=== PATIENT | female | born 1975 | race Caucasian/White ===

== ENCOUNTER 2016-11-01 20:29 | Inpatient (IN) | payer SELFPAY ==
[2016-11-01] MEDS ORDERED: TYLENOL PO ONE (21:31)
[2016-11-01] MEDS ORDERED: TYLENOL ONE (21:32)
[2016-11-01 21:47] LABS: Basophils % (Auto) 1.7 % (0.0-1.8); Eosinophils % (Auto) 0.3 % (0.0-4.3); Hematocrit 37.3 % (30.3-42.9); Hemoglobin 12.2 gm/dl (10.1-14.3); Mean Corpuscular HGB Conc 33 % (30-34); Mean Corpuscular Hemoglobin 28 pg (28-32); Mean Corpuscular Volume 86 fl (79-97); Platelet Count 213 K/mm3 (140-440); Red Blood Count 4.33 M/mm3 (3.65-5.03); Red Cell Distribution Width 12.9 % (13.2-15.2); White Blood Count 10.8 K/mm3 (4.5-11.0)
[2016-11-01 21:56] LABS: Bilirubin,Urine NEG (Negative); Blood,Urine NEG (Negative); Ketones,Urine TR mg/dL (Negative); Leukocyte Esterase,Urine NEG (Negative); Mucus,Urine 3+ /HPF; Nitrite,Urine NEG (Negative); Urobilinogen,Urine < 2.0 mg/dL (<2.0)
[2016-11-01 22:04] LABS: Alanine Aminotransferase 55 units/L (7-56); Albumin 4.1 g/dL (3.9-5); Albumin/Globulin Ratio 1.2 %; Alkaline Phosphatase 89 units/L (35-129); Anion Gap 18 mmol/L; Blood Urea Nitrogen 12 mg/dL (7-17); Calcium 8.9 mg/dL (8.4-10.2); Carbon Dioxide 24 mmol/L (22-30); Chloride 101.9 mmol/L (98-107); Glucose 111 mg/dL (65-100); Lipase 18 units/L (13-60); Potassium 3.9 mmol/L (3.6-5.0); Sodium 140 mmol/L (137-145); Total Protein 7.6 g/dL (6.3-8.2)
[2016-11-02] MEDS ORDERED: ZOFRAN ODT PO ONE (00:22)
[2016-11-02] MEDS ORDERED: SUBLIMAZE IV ONE (05:34)
[2016-11-02] MEDS ORDERED: ZOFRAN IV ONE (05:34)
[2016-11-02] MEDS ORDERED: PEPCID IV ONE (05:34)
[2016-11-02] MEDS ORDERED: NACL 0.9% 1000 ML 1,000 ML IV ONE (07:26)
[2016-11-02] MEDS ORDERED: CARAFATE PO ONE (07:26)
[2016-11-02] MEDS ORDERED: BENTYL IM ONE (07:26)
[2016-11-02] MEDS ORDERED: NACL ONE (07:27)
--- NOTE | 2016-11-02 07:35 | Emergency Department Report ---
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 She is previously unknown to me. She does not have a primary care doctor. Past medical history is noncontributory, denies history of abdominal surgeries with the exception of section. The patient presented to the ER with abdominal pain. The abdominal pain is periumbilical, and radiates all over. It is associated with 4 episodes of emesis, initially described as coffee color, then yellow. She is passing gas. She is defecating. She reports that her defecation is coffee colored as well. There is no hematemesis. There is no bright red blood per rectum. No irritative or obstructive urinary symptoms. No vaginal discharge. Patient briefly describes central chest pain which lasted for a few hours. The chest pain was central, and did not radiate to the back, arms and neck. There is no diaphoresis, there is no shortness of breath. There is no leg pain. There is no leg swelling. No aspirin within the past 7 days, no recent trips, no cocaine use. -: Gradual Location: chest, abdomen Severity scale (0 -10): 8 Quality: aching Consistency: intermittent Improves with: none Worsens with: none Associated Symptoms: chest pain, nausea/vomiting - Related Data Home Medications Medication Instructions Recorded Confirmed Last Taken No Known Home Medications [No 11/02/16 11/02/16 Unknown Reported Home Medications] Allergies Allergy/AdvReac Type Severity Reaction Status Date / Time b-complex Allergy Rash Uncoded 09/29/15 21:01 ED Review of Systems ROS: Stated complaint: CP/VOMITING/ABD PAIN Other details as noted in HPI Constitutional: weakness. denies: malaise Eyes: denies: vision change ENT: denies: epistaxis Respiratory: denies: cough Cardiovascular: chest pain Gastrointestinal: abdominal pain Genitourinary: as per HPI Musculoskeletal: as per HPI Skin: as per HPI Neurological: as per HPI Psychiatric: as per HPI ED Past Medical Hx - Past Medical History Previous Medical History?: No - Surgical History Past Surgical History?: Yes Additional Surgical History: x1 - Social History Smoking Status: Never Smoker - Medications Home Medications: Home Medications Medication Instructions Recorded Confirmed Last Taken Type No Known Home Medications [No 11/02/16 11/02/16 Unknown History Reported Home Medications] ED Physical Exam - General Limitations: Language Barrier General appearance: alert, in no apparent distress - Head Head exam: Present: atraumatic, normocephalic - Eye Eye exam: Present: normal appearance, EOMI. Absent: nystagmus - ENT ENT exam: Present: normal exam, normal orophraynx, mucous membranes moist, normal external ear exam - Neck Neck exam: Present: normal inspection, full ROM. Absent: tenderness, meningismus - Respiratory Respiratory exam: Present: normal lung sounds bilaterally. Absent: respiratory distress, wheezes, rales, rhonchi, stridor, chest wall tenderness, accessory muscle use, decreased breath sounds, prolonged expiratory - Cardiovascular Cardiovascular Exam: Present: regular rate, normal rhythm. Absent: systolic murmur, diastolic murmur, rubs, gallop - GI/Abdominal GI/Abdominal exam: Present: soft, normal bowel sounds. Absent: distended, tenderness, guarding, rebound, rigid, pulsatile mass - Extremities Exam Extremities exam: Present: normal inspection, full ROM, normal capillary refill. Absent: pedal edema, joint swelling, calf tenderness - Back Exam Back exam: Present: normal inspection, full ROM. Absent: tenderness, CVA tenderness (R), CVA tenderness (L), muscle spasm, paraspinal tenderness, vertebral tenderness - Neurological Exam Neurological exam: Present: alert, normal gait, other (Extraocular movements intact. Tongue midline. No facial droop. Facial sensation intact to light touch in the V1, V2, V3 distribution bilaterally. 5 and 5 strength in 4 extremities.. Sensation is intact to light touch in 4 extremities.). Absent: motor sensory deficit - Psychiatric Psychiatric exam: Present: normal affect, normal mood - Skin Skin exam: Present: warm, dry, intact, normal color. Absent: rash ED Course Vital Signs 11/01/16 11/02/16 11/02/16 20:53 00:14 06:57 Temperature 98.3 F 97.9 F 98.3 F Pulse Rate 66 61 80 Respiratory 18 20 16 Rate Blood Pressure 99/64 101/55 Blood Pressure 108/64 [Left] O2 Sat by Pulse 100 100 Oximetry 06/11/02/16 11/02/16 08:54 12:07 12:56 Temperature 98.0 F 98.1 F 98.4 F Pulse Rate 80 65 65 Respiratory 16 16 16 Rate Blood Pressure Blood Pressure 110/67 98/60 101/58 [Left] O2 Sat by Pulse 100 100 100 Oximetry - Reevaluation(s) Reevaluation #1: 11/02/16 07:52 Differential diagnosis: GERD, gastritis, pancreatitis, upper GI bleed, pneumonia , ovarian cyst, inflammatory disease, gastroenteritis, pancreatitis, acute coronary syndrome, esophagitis Assessment and plan: 41-year-old female with a primary complaint of abdominal pain. She is afebrile, with reassuring vital signs. Her abdominal exam is benign. There is no rebound, guarding or peritoneal signs. Chest pain atypical , low risk by LOIS score, low risk by heart score, low risk by wells criteria, perc negative. Laboratory studies reviewed and are unremarkable. Troponins negative 3. EKG morphologically within normal limits 2. X-ray of the chest is negative. Patient's main complaint is abdominal pain. Of note, patient was given multiple medications prior to my evaluation. Therefore, I do not know if she was initially tender when she presented. We will obtain a CT scan of abdomen and pelvis, performed gynecologic exam, and rectal examination, and then reassess. Reevaluation #2: 11/02/16 08:33 Gynecologic examination: Escorted by nurse by Suri Snider: No cervical motion tenderness, no adnexal tenderness, no discharge, no bleeding. Rectal examination, also escorted by Suri Snider: Guaiac-negative, good tone, no gross blood Reevaluation #3: 11/02/16 10:31 CT scan suggests ileus versus partial small bowel obstruction. The patient feels improved. The case is discussed with the general surgeon, , who indicates he is able to follow as a consult. The case is presented to [facility]AB[facility] Byers, who accepts the patient to the internal medicine service. ED Medical Decision Making - Lab Data Result diagrams: 11/01/16 21:26 11/01/16 21:26 Vital Signs 11/01/16 11/02/16 20:53 00:14 Temperature 98.3 F 97.9 F Pulse Rate 66 61 Respiratory 18 20 Rate Blood Pressure 99/64 101/55 O2 Sat by Pulse 100 Oximetry Lab Results 11/01/16 11/01/16 11/01/16 Range/Units 21:24 21:26 21:26 WBC 10.8 (4.5-11.0) K/mm3 RBC 4.33 (3.65-5.03) M/mm3 Hgb 12.2 (10.1-14.3) gm/dl Hct 37.3 (30.3-42.9) % MCV 86 (79-97) fl MCH 28 (28-32) pg MCHC 33 (30-34) % RDW 12.9 L (13.2-15.2) % Plt Count 213 (140-440) K/mm3 Lymph % (Auto) 14.4 (13.4-35.0) % [place] % (Auto) 4.1 (0.0-7.3) % Eos % (Auto) 0.3 (0.0-4.3) % Baso % (Auto) 1.7 (0.0-1.8) % Lymph # 1.5 (1.2-5.4) K/mm3 [place] # 0.4 (0.0-0.8) K/mm3 Eos # 0.0 (0.0-0.4) K/mm3 Baso # 0.2 H (0.0-0.1) K/mm3 Seg Neutrophils % 79.5 H (40.0-70.0) % Seg Neutrophils # 8.6 H (1.8-7.7) K/mm3 Sodium 140 (137-145) mmol/L Potassium 3.9 (3.6-5.0) mmol/L Chloride 101.9 (98-107) mmol/L Carbon Dioxide 24 (22-30) mmol/L Anion Gap 18 mmol/L BUN 12 (7-17) mg/dL Creatinine 0.5 L (0.7-1.2) mg/dL Estimated GFR > 60 ml/min BUN/Creatinine Ratio 24.00 % Glucose 111 H (65-100) mg/dL Calcium 8.9 (8.4-10.2) mg/dL Total Bilirubin 0.30 (0.1-1.2) mg/dL AST 40 (5-40) units/L ALT 55 (7-56) units/L Alkaline Phosphatase 89 (35-129) units/L Troponin T < 0.010 (0.00-0.029) ng/mL Total Protein 7.6 (6.3-8.2) g/dL Albumin 4.1 (3.9-5) g/dL Albumin/Globulin Ratio 1.2 % Lipase 18 (13-60) units/L Urine Color Yellow (Yellow) Urine Turbidity Clear (Clear) Urine pH 5.0 (5.0-7.0) Ur Specific [place] 1.034 H (1.003-1.030) Urine Protein 30 mg/dl (Negative) mg/dL Urine Glucose (UA) Neg (Negative) mg/dL Urine Ketones Tr (Negative) mg/dL Urine Blood Neg (Negative) Urine Nitrite Neg (Negative) Ur Reducing Substances Not Reportable Urine Bilirubin Neg (Negative) Urine Ictotest Not Reportable Urine Urobilinogen < 2.0 (<2.0) mg/dL Ur Leukocyte Esterase Neg (Negative) Urine WBC (Auto) 2.0 (0.0-6.0) /HPF Urine RBC (Auto) 10.0 (0.0-6.0) /HPF U Epithel Cells (Auto) 14.0 H (0-13.0) /HPF Urine Mucus 3+ /HPF Urine HCG, Qual Negative (Negative) 11/02/16 11/02/16 Range/Units 00:33 03:42 WBC (4.5-11.0) K/mm3 RBC (3.65-5.03) M/mm3 Hgb (10.1-14.3) gm/dl Hct (30.3-42.9) % MCV (79-97) fl MCH (28-32) pg MCHC (30-34) % RDW (13.2-15.2) % Plt Count (140-440) K/mm3 Lymph % (Auto) (13.4-35.0) % [place] % (Auto) (0.0-7.3) % Eos % (Auto) (0.0-4.3) % Baso % (Auto) (0.0-1.8) % Lymph # (1.2-5.4) K/mm3 [place] # (0.0-0.8) K/mm3 Eos # (0.0-0.4) K/mm3 Baso # (0.0-0.1) K/mm3 Seg Neutrophils % (40.0-70.0) % Seg Neutrophils # (1.8-7.7) K/mm3 Sodium (137-145) mmol/L Potassium (3.6-5.0) mmol/L Chloride (98-107) mmol/L Carbon Dioxide (22-30) mmol/L Anion Gap mmol/L BUN (7-17) mg/dL Creatinine (0.7-1.2) mg/dL Estimated GFR ml/min BUN/Creatinine Ratio % Glucose (65-100) mg/dL Calcium (8.4-10.2) mg/dL Total Bilirubin (0.1-1.2) mg/dL AST (5-40) units/L ALT (7-56) units/L Alkaline Phosphatase (35-129) units/L Troponin T < 0.010 < 0.010 (0.00-0.029) ng/mL Total Protein (6.3-8.2) g/dL Albumin (3.9-5) g/dL Albumin/Globulin Ratio % Lipase (13-60) units/L Urine Color (Yellow) Urine Turbidity (Clear) Urine pH (5.0-7.0) Ur Specific [place] (1.003-1.030) Urine Protein (Negative) mg/dL Urine Glucose (UA) (Negative) mg/dL Urine Ketones (Negative) mg/dL Urine Blood (Negative) Urine Nitrite (Negative) Ur Reducing Substances Urine Bilirubin (Negative) Urine Ictotest Urine Urobilinogen (<2.0) mg/dL Ur Leukocyte Esterase (Negative) Urine WBC (Auto) (0.0-6.0) /HPF Urine RBC (Auto) (0.0-6.0) /HPF U Epithel Cells (Auto) (0-13.0) /HPF Urine Mucus /HPF Urine HCG, Qual (Negative) - EKG Data -: EKG Interpreted by Me EKG shows normal: sinus rhythm, axis, intervals, QRS complexes, ST-T waves - EKG Data 11/02/16 07:54 EKG #1 demonstrates sinus, 69 beats per minute, normal intervals, normal axis, not morphologically consistent with STEMI. EKG #2 demonstrates sinus bradycardia, 53 bpm, normal intervals, normal axis, not consistent with STEMI. - Radiology Data Radiology results: pending, image reviewed interpreted by me: X-ray the chest is negative for acute disease Critical care attestation.: If time is entered above; I have spent that time in minutes in the direct care of this critically ill patient, excluding procedure time. ED Disposition Clinical Impression: Abdominal pain Disposition: OP ADMIT IP TO THIS HOSP Is pt being admited?: Yes Condition: Good
--- NOTE | 2016-11-02 08:34 | Cat Scan Report ---
FINAL REPORT EXAM: CT ABDOMEN PELVIS W CON HISTORY: abd pain n/v TECHNIQUE: CT abdomen and pelvis performed. Images extend from diaphragm to pubic symphysis. PRIORS: 09/30/2015 FINDINGS: The visualized aspects of the lung bases are clear. There are dilated mid to distal small bowel loops. There is caliber transition but there is fluid in distal loops. Findings could represent a small bowel obstruction versus an ileus. There is no abdominal aortic aneurysm. The visualized liver, spleen, pancreas, adrenal glands and kidneys demonstrate no significant abnormalities. There is no free intraperitoneal air. There are no abnormal fluid collections seen. The bladder is unremarkable. 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 IMPRESSION: Findings are worrisome for small-bowel obstruction versus ileus.
--- NOTE | 2016-11-02 09:33 | XRay Report ---
AP CHEST: HISTORY: chest pain AP view of the chest demonstrates a normal mediastinal and cardiac contour with clear lungs and normal bony and soft tissue structures. IMPRESSION: Unremarkable AP chest.
[2016-11-02] MEDS ORDERED: MILK OF MAGNESIA PO PRN (11:08)
[2016-11-02] MEDS ORDERED: DULCOLAX PR PRN (11:08)
[2016-11-02] MEDS ORDERED: TYLENOL PO PRN (11:08)
[2016-11-02] MEDS ORDERED: ZOFRAN IV PRN (11:08)
[2016-11-02] MEDS ORDERED: HCTZ PO ONE (12:10)
--- NOTE | 2016-11-02 13:17 | History and Physical Report ---
History of Present Illness Date of examination: 11/02/16 Date of admission: 11/02/16 11:59 Chief complaint: Abdominal pain, Nausea and vomiting History of present illness: Patient is a 41 years old female with no past medical history who presents with abdominal pain. The patient states that since yesterday she has felt bloated and has had a decrease in appetite. Two days ago she began having intermittent abdominal pain that initially felt like gas pains but it has now progressed to being nearly constant. Since yesterday she has had severe nausea and has had 4 episodes of coffee colored emesis . Her last bowel movement was yesterday and her defecation is coffee colored as well. She has a history of intermittent constipation but never with this level of pain, the vomiting, or the bloating. . Initially, when she would eat the pain would increase but she has not eaten anything for over 24 hours. Vomiting is the only thing that seems to provide some minimal relief. Currently, the pain is described as a constant dull, diffuse pain that intermittently becomes sharp and well localized. The sharp pain tends to occur in periumbilical area. The intensity of the pain has been increasing over the since yesterday and on pain scale she now rates the pain at 7 out of 10. She denies a recent history of fever, jaundice, pruritis, diarrhea , hemoptysis, melena, or hematochezia. She denies a known history of hemorrhoids , diverticulitis, colon cancer, peptic ulcer disease, gastritis, acid reflux, gall bladder disease or cholelithiasis. She denies a history of smoking or alcohol consumption. Past History Past Medical History: No medical history Past Surgical History: No surgical history, (2 times ) Social history: no significant social history, lives with family Medications and Allergies Allergies Allergy/AdvReac Type Severity Reaction Status Date / Time b-complex Allergy Rash Uncoded 09/29/15 21:01 Home Medications Medication Instructions Recorded Confirmed Last Taken Type No Known Home Medications [No 11/02/16 11/02/16 Unknown History Reported Home Medications] Active Meds: Active Medications Acetaminophen (Tylenol) 650 mg PO Q4H PRN PRN Reason: Pain MILD(1-3)/Fever >100.5/PEÑA Bisacodyl (Dulcolax) 10 mg DC QDAY PRN PRN Reason: Constipation unrelieved by MOM Enoxaparin Sodium (Lovenox) 40 mg SUB-Q QDAY [facility] Famotidine (Pepcid) 10 mg IV BID [facility] Dextrose/Sodium Chloride (D5ns) 1,000 mls @ 75 mls/hr IV DIRECT HUONG Magnesium Hydroxide (Milk Of Magnesia) 30 ml PO Q4H PRN PRN Reason: Constipation Morphine Sulfate (Morphine) 2 mg IV Q4H PRN PRN Reason: Pain, Moderate (4-6) Ondansetron HCl (Zofran) 4 mg IV Q8H PRN PRN Reason: N/V unrelieved by [facility] Review of Systems Constitutional: no weight loss, no weight gain, no fever, no chills, no sweats, no night sweats Ears, nose, mouth and throat: no deferred, no ear pain, no ear discharge, no tinnitis, no nose pain Breasts: normal Cardiovascular: no chest pain, no orthopnea, no palpitations, no shortness of breath Respiratory: no cough, no cough with sputum Gastrointestinal: abdominal pain, nausea, vomiting Genitourinary Female: no dyspareunia, no dysmenorrhea, no pelvic pain Menstruation: no currently menstrual, no premenarcheal, no post hysterectomy Rectal: no pain, no incontinence Musculoskeletal: no neck stiffness, no neck pain Integumentary: no rash, no pruritis Neurological: no head injury, no transient paralysis, no numbness Psychiatric: no anxiety, no memory loss, no change in sleep habits Endocrine: no cold intolerance, no heat intolerance, no polyphagia, no excessive thirst Hematologic/Lymphatic: no easy bruising, no easy bleeding Allergic/Immunologic: no urticaria, no allergic rhinitis Exam - Constitutional Vitals: Temp Pulse Resp BP Pulse Ox 98.4 F 65 16 101/58 100 11/02/16 12:56 11/02/16 12:56 11/02/16 12:56 11/02/16 12:56 11/02/16 12:56 General appearance: Present: mild distress - EENT Eyes: Present: PERRL, EOM intact ENT: hearing intact, clear oral mucosa - Neck Neck: Present: supple, normal ROM - Respiratory Respiratory effort: normal Respiratory: bilateral: CTA - Cardiovascular Heart rate: 65 Heart Sounds: Present: S1 & S2. Absent: rub, click - Extremities Extremities: pulses symmetrical, No edema Peripheral Pulses: within normal limits - Abdominal General gastrointestinal: Present: soft, tender Localized gastrointestinal: tender: LLQ, epigastric periumbilical, midline, guarding: LLQ, epigastric periumbilical, midline - Rectal Rectal Exam: deferred - Integumentary Integumentary: Present: clear, warm, dry - Musculoskeletal Musculoskeletal: strength equal bilaterally - Psychiatric Psychiatric: appropriate mood/affect, intact judgment & insight - Neurologic Neurologic: CNII-XII intact, moves all extremities - Allied Health Allied health notes reviewed: nursing Results - Labs CBC & Chem 7: 11/03/16 04:15 11/03/16 04:15 Labs: Laboratory Last Values WBC 10.8 K/mm3 (4.5-11.0) 11/01/16 21: RBC 4.33 M/mm3 (3.65-5.03) 11/01/16 21: Hgb 12.2 gm/dl (10.1-14.3) 11/01/16: Hct 37.3 % (30.3-42.9) 11/01/16 21: MCV 86 fl (79-97) 11/01/16 21: MCH 28 pg (28-32) 11/01/16 21: MCHC 33 % (30-34) 11/01/16: RDW 12.9 % (13.2-15.2) L 11/01/16 21: Plt Count 213 K/mm3 (140-440) 11/01/16 21: Lymph % (Auto) 14.4 % (13.4-35.0) 11/01/16 21: [place] % (Auto) 4.1 % (0.0-7.3) 11/01/16 21: Eos % (Auto) 0.3 % (0.0-4.3) 11/01/16: Baso % (Auto) 1.7 % (0.0-1.8) 11/01/16: Lymph # 1.5 K/mm3 (1.2-5.4) 11/01/16 21: [place] # 0.4 K/mm3 (0.0-0.8) 11/01/16 21: Eos # 0.0 K/mm3 (0.0-0.4) 11/01/16 21:26 Baso # 0.2 K/mm3 (0.0-0.1) H 11/01/16 21:26 Seg Neutrophils % 79.5 % (40.0-70.0) H 11/01/16 21:26 Seg Neutrophils # 8.6 K/mm3 (1.8-7.7) H 11/01/16 21:26 Sodium 140 mmol/L (137-145) 11/01/16 21:26 Potassium 3.9 mmol/L (3.6-5.0) 11/01/16 21: Chloride 101.9 mmol/L (98-107) 11/01/16 21:26 Carbon Dioxide 24 mmol/L (22-30) 11/01/16 21:26 Anion Gap 18 mmol/L 11/01/16 21:26 BUN 12 mg/dL (7-17) 11/01/16 21: Creatinine 0.5 mg/dL (0.7-1.2) L 11/01/16 21:26 Estimated GFR > 60 ml/min 11/01/16 21:26 BUN/Creatinine Ratio 24.00 % 11/01/16 21:26 Glucose 111 mg/dL (65-100) H 11/01/16 21: Calcium 8.9 mg/dL (8.4-10.2) 11/01/16 21: Total Bilirubin 0.30 mg/dL (0.1-1.2) 11/01/16 21:26 AST 40 units/L (5-40) 11/01/16 21: ALT 55 units/L (7-56) 11/01/16 21:26 Alkaline Phosphatase 89 units/L (35-129) 11/01/16 21:26 Troponin T < 0.010 ng/mL (0.00-0.029) 11/02/16 03:42 Total Protein 7.6 g/dL (6.3-8.2) 11/01/16 21: Albumin 4.1 g/dL (3.9-5) 11/01/16 21:26 Albumin/Globulin Ratio 1.2 % 11/01/16 21:26 Lipase 18 units/L (13-60) 11/01/16 21:26 Urine Color Yellow (Yellow) 11/01/16 21:24 Urine Turbidity Clear (Clear) 11/01/16 21:24 Urine pH 5.0 (5.0-7.0) 11/01/16 21:24 Ur Specific [place] 1.034 (1.003-1.030) H 11/01/16 21:24 Urine Protein 30 mg/dl mg/dL (Negative) 11/01/16 21:24 Urine Glucose (UA) Neg mg/dL (Negative) 11/01/16 21:24 Urine Ketones Tr mg/dL (Negative) 11/01/16 21:24 Urine Blood Neg (Negative) 11/01/16 21:24 Urine Nitrite Neg (Negative) 11/01/16 21:24 Ur Reducing Substances Not Reportable 11/01/16 21:24 Urine Bilirubin Neg (Negative) 11/01/16 21:24 Urine Ictotest Not Reportable 11/01/16 21:24 Urine Urobilinogen < 2.0 mg/dL (<2.0) 11/01/16 21:24 Ur Leukocyte Esterase Neg (Negative) 11/01/16 21:24 Urine WBC (Auto) 2.0 /HPF (0.0-6.0) 11/01/16 21:24 Urine RBC (Auto) 10.0 /HPF (0.0-6.0) 11/01/16 21:24 U Epithel Cells (Auto) 14.0 /HPF (0-13.0) H 11/01/16 21:24 Urine Mucus 3+ /HPF 11/01/16 21:24 Urine HCG, Qual Negative (Negative) 11/01/16 21:24 - Imaging and Cardiology Chest x-ray: image reviewed (unremarkable AP chest ) CT scan - abdomen: image reviewed (Findings are worrisome for small-bowel obstruction vs ileus) Assessment and Plan Assessment and plan: ASSESSMENT/PLAN 1. Abdominal pain due to Small-bowel Obstruction versus ileus. We will admit to surgical 2B floor CT abdomen shows small bowel obstruction versus ileus IV fluid hydration Pain control with morphine Surgical consulted 2. Nausea/Vomiting Zofran when necessary NG tube when necessary 3. VTE/GI prophylaxis Lovenox/Protonix
[2016-11-02] MEDS: D5NS 1,000 ML IV SCH (15:20)
[2016-11-02] MEDS: MORPHINE IV PRN ×2 (15:20→22:02)
[2016-11-02] MEDS ORDERED: PEPCID IV SCH (22:00)
[2016-11-02] MEDS: PEPCID IV SCH (22:01)
--- NOTE | 2016-11-02 22:58 | Consultation ---
HISTORY OF PRESENT ILLNESS: This patient is a -[place]. She is a 41-year-old female who came because of recurrent episodes of abdominal pain with some nausea and vomiting. The patient had these episodes every now and then. She denied any problem with like this before; however, she mentioned that she would have intermittent constipation every now and then. Along with that, she complains of bloating of the abdomen with some relief. The pain has been increasing over the last day or 2. She denied any problem with her bowel movements otherwise other than the above. ALLERGIES: She is allergic to B complex. SOCIAL HISTORY: She has 4 children. LABORATORY DATA: Her CBC showed a white count of 10.8, hemoglobin was 12.2, potassium was 3.9. PHYSICAL EXAMINATION: GENERAL: At this point showed a well preserved short-statured -[place] female. She is in no distress. HEAD AND NECK: Negative. Neck is supple. CHEST: Essentially clear. BREASTS: Symmetric. HEART: Sound normal. ABDOMEN: Protuberant, moderate tenderness in the mid epigastrium. Moderate bowel sounds. EXTREMITIES: Showed no significant edema. IMPRESSION: Abdominal pain with nausea and vomiting. The etiology of which is unknown, probably small-bowel obstruction as seen on the CAT scan. We need to pursue that further and we will go from there. JOB# [id number] LEELEE/REBECCA
[2016-11-03] MEDS: D5NS 1,000 ML IV SCH ×2 (04:23→17:08)
[2016-11-03 04:54] LABS: Basophils % (Auto) 0.2 % (0.0-1.8); Eosinophils % (Auto) 1.9 % (0.0-4.3); Hematocrit 34.2 % (30.3-42.9); Hemoglobin 11.1 gm/dl (10.1-14.3); Mean Corpuscular HGB Conc 33 % (30-34); Mean Corpuscular Hemoglobin 28 pg (28-32); Mean Corpuscular Volume 87 fl (79-97); Platelet Count 181 K/mm3 (140-440); Red Blood Count 3.93 M/mm3 (3.65-5.03); Red Cell Distribution Width 13.2 % (13.2-15.2)
[2016-11-03 05:12] LABS: Anion Gap 15 mmol/L; Blood Urea Nitrogen 7 mg/dL (7-17); Calcium 7.9 mg/dL (8.4-10.2); Carbon Dioxide 22 mmol/L (22-30); Chloride 105.5 mmol/L (98-107); Glucose 91 mg/dL (65-100); Potassium 3.8 mmol/L (3.6-5.0); Sodium 139 mmol/L (137-145)
--- NOTE | 2016-11-03 09:46 | XRay Report ---
KUB: 11/03/16 07:07:00 CLINICAL: Abdominal pain. FINDINGS: Normal bowel gas pattern with a large volume of stool throughout the colon and in the rectum. No distended bowel and no air-fluid levels. No mass or suspicious calcifications. The bones and soft tissues are normal. IMPRESSION: Negative abdomen with abundant stool.
[2016-11-03] MEDS ORDERED: PROTONIX IV SCH (10:00)
[2016-11-03] MEDS: LOVENOX SUB-Q SCH (10:27)
[2016-11-03] MEDS: PEPCID IV SCH ×2 (10:27→23:41)
--- NOTE | 2016-11-03 12:14 | Progress Note ---
Assessment and Plan - Patient Problems (1) Abdominal pain Current Visit: Yes Status: Acute Qualifiers: Abdominal location: generalized Qualified Code(s): R10.84 - Generalized abdominal pain Plan to address problem: Abdominal pain secondary to ileus versus small bowel obstruction. Seems to have improved this morning. Less pain hypoactive bowel sounds. We'll see how patient responds to clear liquid diet. Elevated lipase is tolerated. History Interval history: Abdominal pain has improved. Patient has been nothing by mouth. Feels hungry today. Hospitalist Physical - Constitutional Vitals: Temp Pulse Resp BP Pulse Ox 97.6 F 62 18 92/59 100 11/03/16 07:26 11/03/16 07:26 11/03/16 07:26 11/03/16 07:26 11/03/16 07:26 General appearance: Present: no acute distress - EENT Eyes: Present: PERRL, EOM intact ENT: hearing intact, clear oral mucosa, dentition normal - Neck Neck: Present: supple, normal ROM - Respiratory Respiratory effort: normal Respiratory: bilateral: CTA - Cardiovascular Rhythm: regular Heart Sounds: Present: S1 & S2 - Extremities Extremities: no ischemia, pulses intact, pulses symmetrical Extremity abnormal: edema Peripheral Pulses: within normal limits - Abdominal General gastrointestinal: soft, non-tender, non-distended - Integumentary Integumentary: Present: clear, warm, dry - Psychiatric Psychiatric: appropriate mood/affect, cooperative Results - Labs CBC & Chem 7: 11/03/16 04:15 11/03/16 04:15 Labs: Laboratory Last Values WBC 5.0 K/mm3 (4.5-11.0) 11/03/16 04:15 RBC 3.93 M/mm3 (3.65-5.03) 11/03/16 04:15 Hgb 11.1 gm/dl (10.1-14.3) 11/03/16 04:15 Hct 34.2 % (30.3-42.9) 11/03/16 04:15 MCV 87 fl (79-97) 11/03/16 04:15 MCH 28 pg (28-32) 11/03/16 04:15 MCHC 33 % (30-34) 11/03/16 04:15 RDW 13.2 % (13.2-15.2) 11/03/16 04:15 Plt Count 181 K/mm3 (140-440) 11/03/16 04:15 Lymph % (Auto) 43.3 % (13.4-35.0) H 11/03/16 04:15 [place] % (Auto) 7.9 % (0.0-7.3) H 11/03/16 04:15 Eos % (Auto) 1.9 % (0.0-4.3) 11/03/16 04:15 Baso % (Auto) 0.2 % (0.0-1.8) 11/03/16 04:15 Lymph # 2.2 K/mm3 (1.2-5.4) 11/03/16 04:15 [place] # 0.4 K/mm3 (0.0-0.8) 11/03/16 04:15 Eos # 0.1 K/mm3 (0.0-0.4) 11/03/16 04:15 Baso # 0.0 K/mm3 (0.0-0.1) 11/03/16 04:15 Seg Neutrophils % 46.7 % (40.0-70.0) 11/03/16 04:15 Seg Neutrophils # 2.3 K/mm3 (1.8-7.7) 11/03/16 04:15 Sodium 139 mmol/L (137-145) 11/03/16 04:15 Potassium 3.8 mmol/L (3.6-5.0) 11/03/16 04:15 Chloride 105.5 mmol/L (98-107) 11/03/16 04:15 Carbon Dioxide 22 mmol/L (22-30) 11/03/16 04:15 Anion Gap 15 mmol/L 11/03/16 04:15 BUN 7 mg/dL (7-17) 11/03/16 04:15 Creatinine 0.5 mg/dL (0.7-1.2) L 11/03/16 04:15 Estimated GFR > 60 ml/min 11/03/16 04:15 BUN/Creatinine Ratio 14.00 % 11/03/16 04:15 Glucose 91 mg/dL (65-100) 11/03/16 04:15 Calcium 7.9 mg/dL (8.4-10.2) L 11/03/16 04:15 Total Bilirubin 0.30 mg/dL (0.1-1.2) 11/01/16 21:26 AST 40 units/L (5-40) 11/01/16 21: ALT 55 units/L (7-56) 11/01/16 21: Alkaline Phosphatase 89 units/L (35-129) 11/01/16 21: Troponin T < 0.010 ng/mL (0.00-0.029) 11/02/16 03:42 Total Protein 7.6 g/dL (6.3-8.2) 11/01/16 21: Albumin 4.1 g/dL (3.9-5) 11/01/16 21: Albumin/Globulin Ratio 1.2 % 11/01/16 21: Lipase 18 units/L (13-60) 11/01/16 21:26 Urine Color Yellow (Yellow) 11/01/16 21:24 Urine Turbidity Clear (Clear) 11/01/16 21:24 Urine pH 5.0 (5.0-7.0) 11/01/16 21:24 Ur Specific [place] 1.034 (1.003-1.030) H 11/01/16 21:24 Urine Protein 30 mg/dl mg/dL (Negative) 11/01/16 21:24 Urine Glucose (UA) Neg mg/dL (Negative) 11/01/16 21:24 Urine Ketones Tr mg/dL (Negative) 11/01/16 21:24 Urine Blood Neg (Negative) 11/01/16 21:24 Urine Nitrite Neg (Negative) 11/01/16 21:24 Ur Reducing Substances Not Reportable 11/01/16 21:24 Urine Bilirubin Neg (Negative) 11/01/16 21:24 Urine Ictotest Not Reportable 11/01/16 21:24 Urine Urobilinogen < 2.0 mg/dL (<2.0) 11/01/16 21:24 Ur Leukocyte Esterase Neg (Negative) 11/01/16 21:24 Urine WBC (Auto) 2.0 /HPF (0.0-6.0) 11/01/16 21:24 Urine RBC (Auto) 10.0 /HPF (0.0-6.0) 11/01/16 21:24 U Epithel Cells (Auto) 14.0 /HPF (0-13.0) H 06/23/17 21:24 Urine Mucus 3+ /HPF 11/01/16 21:24 Urine HCG, Qual Negative (Negative) 11/01/16 21:24
[2016-11-04] MEDS: D5NS 1,000 ML IV SCH ×2 (06:35→22:30)
[2016-11-04] MEDS ORDERED: MILK OF MAGNESIA PO ONE (07:58)
--- NOTE | 2016-11-04 08:00 | Progress Note ---
Assessment and Plan Assessment and plan: -- Abdominal pain due to Small-bowel Obstruction versus ileus. CT abdomen shows small bowel obstruction versus ileus , symptoms significantly improved Denies nausea vomiting, x-ray consistent with constipation Stool softeners, clear liquid diet as tolerated supportive care --Constipation stool softeners, plenty of oral liquids, enema as needed -- Nausea/Vomiting Significantly improved Zofran when necessary Clear liquid diet advance as tolerated -- VTE/GI prophylaxis Lovenox/Protonix Closely monitor the patient and adjust the management as needed If patient tolerates clear liquids, and advance the diet If patient does not have bowel movement, Fleet enema as as needed Possible discharge in 1-2 days if stable Plan of care discussed with the patient and the at the bedside as well as the nurse History Interval history: Patient seen and evaluated in her room this morning medical records reviewed No new events reported by the nursing staff Patient has been nothing by mouth for abdominal pain and possible ileus Denies nausea vomiting Alert awake oriented 3 not in acute distress, vital signs reviewed Hospitalist Physical - Constitutional Vitals: Temp Pulse Resp BP Pulse Ox 98.2 F 54 L 12 90/60 100 11/04/16 01:52 11/04/16 01:52 11/04/16 01:52 11/04/16 01:52 11/04/16 01:52 General appearance: Present: no acute distress, well-nourished, cachectic - EENT Eyes: Present: PERRL, EOM intact - Neck Neck: Present: supple, normal ROM - Respiratory Respiratory effort: normal Respiratory: bilateral: diminished, negative: rales, rhonchi, wheezing - Cardiovascular Rhythm: regular Heart Sounds: Present: S1 & S2 - Extremities Extremities: no ischemia, pulses intact, pulses symmetrical Peripheral Pulses: within normal limits - Abdominal General gastrointestinal: soft, non-tender, non-distended, normal bowel sounds - Integumentary Integumentary: Present: clear, warm - Psychiatric Psychiatric: appropriate mood/affect, cooperative - Neurologic Neurologic: CNII-XII intact, moves all extremities Results - Labs CBC & Chem 7: 11/03/16 04:15 11/03/16 04:15 Labs: Laboratory Last Values WBC 5.0 K/mm3 (4.5-11.0) 11/03/16 04:15 RBC 3.93 M/mm3 (3.65-5.03) 11/03/16 04:15 Hgb 11.1 gm/dl (10.1-14.3) 11/03/16 04:15 Hct 34.2 % (30.3-42.9) 11/03/16 04:15 MCV 87 fl (79-97) 11/03/16 04:15 MCH 28 pg (28-32) 11/03/16 04:15 MCHC 33 % (30-34) 11/03/16 04:15 RDW 13.2 % (13.2-15.2) 11/03/16 04:15 Plt Count 181 K/mm3 (140-440) 11/03/16 04:15 Lymph % (Auto) 43.3 % (13.4-35.0) H 11/03/16 04:15 Power % (Auto) 7.9 % (0.0-7.3) H 11/03/16 04:15 Eos % (Auto) 1.9 % (0.0-4.3) 11/03/16 04:15 Baso % (Auto) 0.2 % (0.0-1.8) 11/03/16 04:15 Lymph # 2.2 K/mm3 (1.2-5.4) 11/03/16 04:15 Power # 0.4 K/mm3 (0.0-0.8) 11/03/16 04:15 Eos # 0.1 K/mm3 (0.0-0.4) 11/03/16 04:15 Baso # 0.0 K/mm3 (0.0-0.1) 11/03/16 04:15 Seg Neutrophils % 46.7 % (40.0-70.0) 11/03/16 04:15 Seg Neutrophils # 2.3 K/mm3 (1.8-7.7) 11/03/16 04:15 Sodium 139 mmol/L (137-145) 11/03/16 04:15 Potassium 3.8 mmol/L (3.6-5.0) 11/03/16 04:15 Chloride 105.5 mmol/L (98-107) 11/03/16 04:15 Carbon Dioxide 22 mmol/L (22-30) 11/03/16 04:15 Anion Gap 15 mmol/L 11/03/16 04:15 BUN 7 mg/dL (7-17) 11/03/16 04:15 Creatinine 0.5 mg/dL (0.7-1.2) L 11/03/16 04:15 Estimated GFR > 60 ml/min 11/03/16 04:15 BUN/Creatinine Ratio 14.00 % 11/03/16 04:15 Glucose 91 mg/dL (65-100) 11/03/16 04:15 Calcium 7.9 mg/dL (8.4-10.2) L 11/03/16 04:15 Total Bilirubin 0.30 mg/dL (0.1-1.2) 11/01/16 21:26 AST 40 units/L (5-40) 11/01/16 21:26 ALT 55 units/L (7-56) 11/01/16 21:26 Alkaline Phosphatase 89 units/L (35-129) 11/01/16 21:26 Troponin T < 0.010 ng/mL (0.00-0.029) 11/02/16 03:42 Total Protein 7.6 g/dL (6.3-8.2) 11/01/16 21:26 Albumin 4.1 g/dL (3.9-5) 11/01/16 21:26 Albumin/Globulin Ratio 1.2 % 11/01/16 21:26 Lipase 18 units/L (13-60) 11/01/16 21:26 Urine Color Yellow (Yellow) 11/01/16 21:24 Urine Turbidity Clear (Clear) 11/01/16 21:24 Urine pH 5.0 (5.0-7.0) 11/01/16 21:24 Ur Specific [place] 1.034 (1.003-1.030) H 11/01/16 21:24 Urine Protein 30 mg/dl mg/dL (Negative) 11/01/16 21:24 Urine Glucose (UA) Neg mg/dL (Negative) 11/01/16 21:24 Urine Ketones Tr mg/dL (Negative) 11/01/16 21:24 Urine Blood Neg (Negative) 11/01/16 21:24 Urine Nitrite Neg (Negative) 11/01/16 21:24 Ur Reducing Substances Not Reportable 11/01/16 21:24 Urine Bilirubin Neg (Negative) 11/01/16 21:24 Urine Ictotest Not Reportable 11/01/16 21:24 Urine Urobilinogen < 2.0 mg/dL (<2.0) 11/01/16 21:24 Ur Leukocyte Esterase Neg (Negative) 11/01/16 21:24 Urine WBC (Auto) 2.0 /HPF (0.0-6.0) 11/01/16 21:24 Urine RBC (Auto) 10.0 /HPF (0.0-6.0) 11/01/16 21:24 U Epithel Cells (Auto) 14.0 /HPF (0-13.0) H 11/01/16 21:24 Urine Mucus 3+ /HPF 11/01/16 21:24 Urine HCG, Qual Negative (Negative) 11/01/16 21:24
[2016-11-04] MEDS: FLAGYL PO SCH ×3 (09:15→22:22)
[2016-11-04] MEDS: PEPCID IV SCH ×2 (09:15→22:22)
[2016-11-04] MEDS: LOVENOX SUB-Q SCH (09:16)
--- NOTE | 2016-11-04 09:24 | Admit Criteria Form ---
Admission Criteria Documentation: INTESTINAL OBSTRUCTION Clinical Indications for Admission to Inpatient Care (Place 'X' for any and all applicable criteria): Admission is indicated for ANY ONE of the following (1)(2)(3)(4)(5): [X]I. Partial bowel obstruction [ ]II. Complete bowel obstruction Extended stay beyond goal length of stay may be needed for(1)(4)(12(: [ ]a) Identified etiology (eg, hernia, volvulus, cancer with obstruction) requiring intervention [ ]b) Gallstone ileus [ ]c) Surgical intervention [ ]d) Acute comorbid illness (eg, electrolyte imbalance, hypovolemia, renal failure) The original [employer] content created by [employer] has been revised. The portions of the content which have been revised are identified through the use of italic text or in bold, and [facility] has neither reviewed nor approved the modified material. All other unmodified content is copyright [employer]. Please see references footnoted in the original [employer] edition 2016 Admission Criteria Met: Yes
[2016-11-04] MEDS ORDERED: FLEET PR PRN (16:04)
[2016-11-05] MEDS: FLAGYL PO SCH (05:15)
[2016-11-05] MEDS ORDERED: MILK OF MAGNESIA PO ONE (07:31)
[2016-11-05] MEDS ORDERED: DULCOLAX PR ONE (07:32)
[2016-11-05 09:11] VITALS: BP 90/53
[2016-11-05] MEDS ORDERED: PEPCID PO SCH (10:00)
--- NOTE | 2016-11-05 11:16 | Discharge Summary ---
Providers - Providers Date of Admission: 11/02/16 11:59 Date of discharge: 11/05/16 Attending physician: ESTEPHANIA CRESPO Primary care physician: [employer] PROFESSOR Hospitalization Reason for admission: abdominal pain/constipation Condition: Good Pertinent studies: Chest x-ray; normal study CT abdomen and pelvis; 11/02/2016; possible small bowel obstruction versus ileus Abdominal x-ray; 11/03/2016 negative abdomen with abundant stool Hospital course: --Final diagnosis; Abdominal pain Constipation relieved Bacterial vaginitis on treatment Brief history and hospital course; 41-year-old Syriac female patient with no significant past medical history not on any medications was admitted through emergency room with intractable nausea vomiting and abdominal pain Patient was admitted symptomatically managed CT abdomen and pelvis revealed possible obstruction versus ileus Patient was evaluated by surgery, no evidence of IV as advise symptomatic management Patient also underwent abdominal x-ray which showed large amount of stool with constipation Treated with stool softeners and suppositories, patient had good bowel movement and constipation was relieved Today she is comfortable in bed in no new complaints, vital signs are stable, tolerating regular diet and is ambulatory Discharge the patient home on stool softeners as needed, advised high fiber diet and increase oral fluids intake .The time of discharge patient is hemodynamically and clinically stable Patient had suprapubic discomfort, but smear revealed 20% clue cells consistent with bacterial vaginitis Started on Flagyl, patient was continue for 7 days and follow with INDIVIDUAL PENSION ADVISER if needed Disposition: TO HOME OR SELFCARE Time spent for discharge: 31 min Core Measure Documentation - Palliative Care Palliative Care/ Comfort Measures: Not Applicable - Core Measures Any of the following diagnoses?: none Exam - Constitutional Vitals: Temp Pulse Resp BP Pulse Ox 98.3 F 97 H 16 90/53 95 11/05/16 08:00 11/05/16 08:00 11/05/16 08:00 11/05/16 08:00 11/05/16 08:47 General appearance: Present: no acute distress, well-nourished - EENT Eyes: Present: PERRL, EOM intact - Neck Neck: Present: supple, normal ROM - Respiratory Respiratory effort: normal Respiratory: negative: rales, rhonchi, wheezing - Cardiovascular Rhythm: regular Heart Sounds: Present: S1 & S2 - Extremities Extremities: no ischemia, pulses intact, pulses symmetrical Peripheral Pulses: within normal limits - Abdominal General gastrointestinal: Present: soft, non-tender, non-distended, normal bowel sounds - Integumentary Integumentary: Present: clear, warm - Musculoskeletal Musculoskeletal: strength equal bilaterally - Psychiatric Psychiatric: appropriate mood/affect, cooperative - Neurologic Neurologic: CNII-XII intact, moves all extremities Plan Activity: no restrictions Diet: regular Additional Instructions: Follow INDIVIDUAL PENSION ADVISER as needed Follow up with: PRIMARY CAREMD [Primary Care Provider] - 3-5 Days ASTRID FRYE MD [Staff Physician] - 7 Days Prescriptions: Docusate Sodium [Colace] 100 mg PO BID PRN #14 capsule PRN Reason: Constipation metroNIDAZOLE [Flagyl TAB] 500 mg PO Q8HR #21 tablet
== END 2016-11-05 15:00 | disposition home or self-care (01) | DRG 390 ==
LOC: ED 20:29 → 2B-SURG 11-02 11:59
PROVIDERS: ADMIT Internal Medicine; ATTEND Internal Medicine
DX: K56.60 Unspecified intestinal obstruction (principal); K56.7 Ileus, unspecified; Z88.8 Allergy status to other drugs, medicaments and biological substances; K59.00 Constipation, unspecified; R11.2 Nausea with vomiting, unspecified; N76.0 Acute vaginitis; B96.89 Other specified bacterial agents as the cause of diseases classified elsewhere
CPT/HCPCS: 36415; 71010; 74000; 74177; 80048; 80053; 81001; 81025; 82271; 83690; 84484; 85025; 87210; 87591; 93005; 93010; J0500; J1650; J2270; J2405; J3010; J7030; J7042; Q0162; Q9967